=== PATIENT | male | born 1945 | race Hispanic/Latino ===

== ENCOUNTER 2017-04-19 23:13 | Inpatient (IN) | payer MEDICARE ==
--- NOTE | 2017-04-19 23:34 | C.PDOC ---
History Of Present Illness 71 year old male who BIBA ambulance after his neighbors saw him drinking in his car and call EMS. Patient admits to drinking; he states he is depressed because today is the anniversary of his 's . Patient reports having suicidal thoughts but has no plan; denies physical complaints at this time. Time Seen by Provider: 04/19/17 23:21 Chief Complaint (Nursing): Substance Abuse History Per: Patient History/Exam Limitations: no limitations Onset/Duration Of Symptoms: Hrs Current Symptoms Are (Timing): Still Present Suicide/Self Injury Attempted (Context): None Modifying Factor(s): Alcohol Associated Symptoms: Depression, Suicidal Thoughts. denies: Suicidal Plan Involuntary Hold By: None Recent travel outside of the [place]: No Past Medical History Reviewed: Historical Data, Nursing Documentation, Vital Signs Vital Signs: Last Vital Signs Temp 98.7 F 04/21/17 15:25 Pulse 90 04/21/17 15:25 Resp 20 04/21/17 15:25 BP 142/59 L 04/21/17 15:25 Pulse Ox 96 04/21/17 15:25 - Medical History PMH: No Chronic Diseases - [facility] Procedures CHOLECYSTECTOMY (04/23/03) DESTRUCT ABD WALL LESION (06/09/99) DESTRUCT-KNEE LESION NEC (02/11/98) EXCIS KNEE SEMILUN CARTL (02/11/98) INTRAOPER CHOLANGIOGRAM (04/23/03) LAPAROSCOP LYSIS-PERITONEAL ADHES (04/23/03) OPEN BIOPSY OF LIVER (04/23/03) OTH LYSIS-PERITONEAL ADHES (06/09/99) SIZE REDUCT PLASTIC OP (06/09/99) UMBIL HERNIA REPAIR-GRFT (06/09/99) Family History: States: Other Other Family History: nc Review Of Systems Except As Marked, All Systems Reviewed And Found Negative. Constitutional: Negative for: Fever, Chills Cardiovascular: Negative for: Chest Pain, Palpitations Respiratory: Negative for: Cough, Shortness of Breath, Wheezing Gastrointestinal: Negative for: Nausea, Vomiting, Abdominal Pain, Diarrhea Neurological: Negative for: Weakness, Numbness Psych: Positive for: Depression, Suicidal ideation Physical Exam - Physical Exam Appears: Non-toxic, No Acute Distress, Other (ETOH on breath) Skin: Normal Color, Warm, Dry Head: Atraumatic, Normacephalic Eye(s): bilateral: PERRL Nose: No Epistaxis Oral Mucosa: Moist Chest: No Tenderness Cardiovascular: Rhythm Regular, No Murmur Respiratory: No Accessory Muscle Use, No Rales, No Rhonchi, No Wheezing Gastrointestinal/Abdominal: Soft, No Tenderness Extremity: No Deformity Pulses: Left Radial: Normal, Right Radial: Normal Neurological/Psych: Oriented x3, Normal Motor, Normal Sensation, Other (no focal defiicts) ED Course And Treatment - Laboratory Results Result Diagrams: 04/20/17 11:22 04/20/17 11:22 Medical Decision Making Medical Decision Making: Blood work, EKG, and urinalysis ordered. EKG: Atrial fibrillation 73, LBBB Disposition - Disposition Disposition: HOSPITALIZED Disposition Time: 01:43 Condition: GUARDED - Clinical Impression Clinical Impression: Alcoholic ketoacidosis, Suicidal ideation - Scribe Statement The provider has reviewed the documentation as recorded by the Scribe Geovany Rockwell All medical record entries made by the Scribe were at my direction and personally dictated by me. I have reviewed the chart and agree that the record accurately reflects my personal performance of the history, physical exam, medical decision making, and the department course for this patient. I have also personally directed, reviewed, and agree with the discharge instructions and disposition.
[2017-04-19] MEDS ORDERED: Sodium Chloride 0.9% 1,000 ML IV SCH (23:45)
[2017-04-19 23:46] LABS: BASO # 0.1 K/uL (0.0-0.2); BASO % 0.8 % (0.0-2.0); EOS # 0.4 K/uL (0.0-0.7); EOS % 3.3 % (0.0-4.0); HEMOGLOBIN 12.6 g/dL (12.0-18.0); LYMPH # 2.8 K/uL (1.0-4.3); LYMPH % 24.8 % (20.0-40.0); MEAN CELL VOLUME 87.1 fL (80.0-94.0); MEAN CORPUSCULAR HEMOGLOBIN 28.3 pg (27.0-31.0); MEAN CORPUSCULAR HGB CONC 32.5 g/dL (33.0-37.0); MEAN PLATELET VOLUME 8.8 fL (7.2-11.7); MONO # 1.3 K/uL (0.0-0.8); MONO % 11.4 % (0.0-10.0); NEUT # 6.6 K/uL (1.8-7.0); NEUT % 59.7 % (50.0-75.0); RBC 4.44 Mil/uL (4.40-5.90); RED CELL DISTRIBUTION WIDTH 13.2 % (11.5-14.5); WHITE BLOOD COUNT 11.1 K/uL (4.8-10.8)
[2017-04-19] MEDS ORDERED: Sodium Chloride 0.9% 1,000 ML ONE (23:46)
[2017-04-19 23:55] LABS: ALBUMIN 3.7 g/dL (3.5-5.0)
[2017-04-19 23:58] LABS: AST/SGOT 30 U/L (17-59); GFR AFRICAN-AMERICAN > 60; GFR NON-AFRICAN AMERICAN > 60
[2017-04-19 23:59] LABS: ALB/GLOB RATIO 1.1 (1.0-2.1); ALT/SGPT 28 U/L (21-72); BLOOD UREA NITROGEN 6 mg/dL (9-20); CALCIUM 8.2 mg/dl (8.6-10.4)
[2017-04-20 00:06] LABS: ACETAMINOPHEN < 10.0 ug/mL (10.0-30.0); SALICYLATE < 1.0 mg/dL 1
[2017-04-20] MEDS ORDERED: Sodium Chloride 0.9% 1,000 ML IV ONE ×2 (00:58→01:15)
[2017-04-20 01:24] LABS: ABG ALLEN TEST POS; ARTERIAL BLOOD GAS O2 SAT 96.2 % (95-98); ARTERIAL BLOOD GAS PCO2 38 mm/Hg (35-45); ARTERIAL BLOOD GAS PH 7.25 (7.35-7.45); ARTERIAL BLOOD GAS PO2 73 mm/Hg (80-100); ARTERIAL BLOOD GAS TCO2 17.9 mmol/L (22-28)
[2017-04-20] MEDS ORDERED: Thiamine 100 mg/ml Inj IV ONE (01:29)
[2017-04-20] MEDS ORDERED: Dextrose 5%/0.9% NS 1,000 ML IV ONE ×2 (01:30→01:36)
[2017-04-20] MEDS ORDERED: Sodium Chloride 0.9% 1,000 ML IV SCH ×2 (02:00→02:30)
[2017-04-20 02:43] LABS: GFR AFRICAN-AMERICAN > 60; GFR NON-AFRICAN AMERICAN > 60
[2017-04-20 02:44] LABS: BLOOD UREA NITROGEN 5 mg/dL (9-20); CALCIUM 6.8 mg/dl (8.6-10.4)
[2017-04-20 02:51] LABS: VENOUS BLOOD GAS BASE EXCESS -12.6 mmol/L (0.0-2.0); VENOUS BLOOD GAS PCO2 39 mmHg (40-60); VENOUS BLOOD GAS PO2 45 mm/Hg (30-55); VENOUS BLOOD PH 7.19 (7.32-7.43)
[2017-04-20 03:13] LABS: VENOUS BLOOD GAS BASE EXCESS -9.9 mmol/L (0.0-2.0); VENOUS BLOOD GAS PCO2 46 mmHg (40-60); VENOUS BLOOD GAS PO2 41 mm/Hg (30-55)
[2017-04-20 07:24] LABS: SQUAMOUS EPITHIAL < 1 /hpf (0-5); URINE BACTERIA RARE (<OCC); URINE BILIRUBIN NEGATIVE (NEGATIVE); URINE BLOOD 1+ (NEGATIVE); URINE CLARITY Clear (Clear); URINE COLOR Straw (YELLOW); URINE GLUCOSE (UA) 3+ mg/dL (Normal); URINE LEUKOCYTE ESTERASE TRACE Leu/uL (Negative); URINE NITRATE NEGATIVE (NEGATIVE); URINE PROTEIN NEGATIVE (NEGATIVE); URINE UROBILINOGEN NORMAL mg/dL (0.2-1.0)
[2017-04-20 07:54] LABS: BENZODIAZEPINES, UR NEGATIVE (NEGATIVE)
[2017-04-20 07:55] LABS: BARBITURATES, UR NEGATIVE (NEGATIVE)
[2017-04-20 07:57] LABS: OPIATES, UR NEGATIVE (NEGATIVE)
[2017-04-20 07:58] LABS: PHENCYCLIDINE, UR NEGATIVE (NEGATIVE)
[2017-04-20] MEDS: (Novolin R) Insulin Human Regular 100 units/ml vial SC SCH ×4 (08:09→22:02)
--- NOTE | 2017-04-20 08:14 | RAD ---
HISTORY: psych COMPARISON: No prior. FINDINGS: LUNGS: Moderate venous congestion. Patchy consolidative changes at the left lung base with small left pleural effusion. PLEURA: No significant pleural effusion identified, no pneumothorax apparent. CARDIOVASCULAR: Cardiomegaly. Calcification at the aortic knob. OSSEOUS STRUCTURES: No significant abnormalities. VISUALIZED UPPER ABDOMEN: Normal. OTHER FINDINGS: None. IMPRESSION: Moderate venous congestion. Patchy consolidative changes at the left lung base with small left pleural effusion. Cardiomegaly. Calcification at the aortic knob.
[2017-04-20] MEDS: Albuterol-Ipratrop 3 mg / 0.5 (3 ml) UD INH SCH ×3 (08:39→19:17)
[2017-04-20] MEDS: Tiotropium 18 mcg Cap For Inhalation INH SCH (08:40)
[2017-04-20] MEDS: Fluticasone-Salmeterol 250-50mcg Diskus INH SCH ×2 (08:40→19:17)
[2017-04-20] MEDS ORDERED: Folic Acid 1 MG, Thiamine 100 MG, Multivitamin (MVI) 10 ML in Dextrose 5% In Water 1,00... IV SCH ×2 (09:30)
[2017-04-20] MEDS: Enoxaparin 40 mg Syringe SC SCH (11:01)
[2017-04-20 11:28] LABS: BASO # 0.1 K/uL (0.0-0.2); BASO % 1.1 % (0.0-2.0); EOS # 0.3 K/uL (0.0-0.7); EOS % 3.7 % (0.0-4.0); HEMOGLOBIN 12.3 g/dL (12.0-18.0); LYMPH # 2.1 K/uL (1.0-4.3); LYMPH % 26.9 % (20.0-40.0); MEAN CELL VOLUME 86.1 fL (80.0-94.0); MEAN CORPUSCULAR HEMOGLOBIN 28.4 pg (27.0-31.0); MEAN PLATELET VOLUME 9.7 fL (7.2-11.7); MONO # 0.8 K/uL (0.0-0.8); MONO % 10.3 % (0.0-10.0); NEUT # 4.5 K/uL (1.8-7.0); RBC 4.34 Mil/uL (4.40-5.90); WHITE BLOOD COUNT 7.8 K/uL (4.8-10.8)
[2017-04-20 11:40] LABS: ALBUMIN 3.6 g/dL (3.5-5.0)
[2017-04-20 11:43] LABS: GFR AFRICAN-AMERICAN > 60; GFR NON-AFRICAN AMERICAN > 60
[2017-04-20 11:44] LABS: ALB/GLOB RATIO 1.1 (1.0-2.1); ALT/SGPT 33 U/L (21-72); AST/SGOT 29 U/L (17-59); BLOOD UREA NITROGEN 4 mg/dL (9-20); CALCIUM 8.5 mg/dl (8.6-10.4)
[2017-04-20 11:51] LABS: CK-MB 4.28 ng/mL (0.0-3.38)
--- NOTE | 2017-04-20 12:23 | CARD ---
APPROVED REPORT EKG Measurement Heart [id number] <Conclusion> Atrial fibrillation Left axis deviation Nonspecific intraventricular block Abnormal QRS-T angle, consider primary T wave abnormality Abnormal ECG
--- NOTE | 2017-04-20 16:57 | PCM.PSYCH ---
Initial Psychiatric Evaluation - Initial Psychiatric Evaluation Type of Admission: Voluntary Legal Status: Capacity Chief Complaint (in patient's own words): I was drinking alcohol and feeling depressed History of Present Illness and Precipitating Events: Patient is a 71 year-old male, who lives alone, came to the hospital via ambulance after his neighbors saw him drinking alcohol in his car. We were consulted because the patient states he feels depressed and has suicidal ideations. Patient states that he drank a pint of liquor and was feeling depressed yesterday because it was 4th anniversary of his 's . 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 Patient admits to suicidal ideations yesterday while drinking but denies any suicidal ideation or plan today. He remained superficially cooperative but guarded about the details. He reports depressed mood but denies any feelings of haplessness and helplessness and worthlessness. Patient denies any previous suicide attempts. Patient denies any hallucinations , and any other symptoms. Patient denies any other substance abuse. Patient denies any withdrawal symptoms. Staff reports that pt remained calm and cooperative since yesterday and they didn't witness any depressed or crying behavior. Past medical history DM, asthma Current Medications: Active Medications Generic Name Dose Route Start Last Admin Trade Name Freq PRN Reason Stop Dose Admin Albuterol/Ipratropium 3 ml 04/20/17 08:00 04/20/17 13:08 Duoneb 3 Mg/0.5 Mg (3 Ml) Ud INH 3 ml RQ6 KOTA Administration Enoxaparin Sodium 40 mg 04/20/17 10:00 04/20/17 11:01 Lovenox SC 40 mg DAILY KOTA Administration Famotidine 20 mg 04/20/17 10:00 04/20/17 11:01 Pepcid IVP 20 mg DAILY KOTA Administration Folic Acid 1 mg/ Thiamine HCl 1,011.2 mls @ 75 mls/hr 04/20/17 09:30 11:14 100 mg/ Multivitamins/Vitamin IV 04/20/17 22:58 75 mls/hr C 10 ml/ Dextrose .[id number] KOTA Administration Insulin Human Regular 0 unit 04/20/17 07:30 04/20/17 12:31 Novolin R SC 2 unit ACHS KOTA Administration Protocol Fluticasone/Salmeterol 1 puff 04/20/17 08:00 04/20/17 08:40 Advair Diskus 250/50 INH Not Given RQ12 KOTA Sertraline HCl 25 mg 04/20/17 10:00 04/20/17 11:01 Zoloft PO 25 mg DAILY KOTA Administration Tiotropium [place] 18 mcg 04/20/17 08:00 04/20/17 08:40 Spiriva INH Not Given RQ24 KOTA Past Psychiatric History - Past Psychiatric History Previous Treatment History: None Pertinent Medical Hx (Current Medical&Sleep Prob, Allergies): Allergies Allergy/AdvReac Type Severity Reaction Status Date / Time No Known Allergies Allergy Unverified 04/19/17 23:20 Digoxin [Lanoxin] 0.25 mg PO DAILY 04/19/17 Diltiazem HCl [Diltiazem 24Hr ER] 180 mg PO DAILY 04/19/17 Glimepiride 2 mg PO DAILY 04/19/17 MetFORMIN [glucOPHAGE] 1,000 mg PO BID 04/19/17 Simvastatin 40 mg PO DAILY 04/19/17 Tamsulosin [Flomax] 0.4 mg PO DAILY 04/19/17 Review of Systems - Review of Systems All systems: reviewed and no additional remarkable complaints except - Psychiatric Psychiatric: Depression, Hopelessness, Irritability Mental Status Examination - Personal Presentation Personal Presentation: Looks stated age - Affect Affect: Constricted, Depressed - Motor Activity Motor Activity: Calm - Reliability in Providing Information Reliability in Providing Information: Fair - Speech Speech: Relevant - Mood Mood: Depressed - Formal Thought Process Formal Thought Process: No Impairment - Cognitive Functions Orientation: Person, Place, Situation, Time Sensorium: Alert Attention/Concentration: Attentive Abstract Thinking: [place] Estimate of Intelligence: Below average Judgement: Imparied, as evidence by: Poor judgement, Imparied, as evidence by: Lack of insight into illness - Risk Risk: Diminished functioning - Strength & Assets Inventory Strength & Assets Inventory: Cooperative - Limitations Limitations: Living alone DSM 5 DX - DSM 5 DSM 5 Diagnosis: Major depressive disorder recurrent severe without psychotic features Alcohol use moderate - Recommended/Plan of Treatment Treatment Recommendations and Plan of Treatment: Major depressive disorder recurrent severe without psychotic features CBT Psychoeducation Supportive therapy, individual therapy Start Zoloft 25 mg PO daily Start Trazodone 50 mg PO Q HS Start Neurontin 100 mg PO TID Alcohol use disorder moderate CBT Psychoeducation Supportive therapy, individual therapy Use [place] for abstinence - Smoking Cessation Smoking Cessation Initiated: No
--- NOTE | 2017-04-20 20:39 | CP.PCM.HP ---
History of Present Illness - History of Present Illness History of Present Illness: Chief complaint: Patient was brought to the neighbor, because he was drinking alcohol and found drunk. History present illness: 71-year-old male with history of diabetes, hypertension, bronchial asthma, hypercholesteremia, atrial fibrillation, unable to do the anticoagulation, patient was refusing to have the anticoagulation because of the bleeding. Poorly controlled diabetes recently. Osteoporosis and osteoarthritis. Patient was recently having some episodes of depression. He was taking some medications. Yesterday patient started drinking alcohol, he was drinking heavily, and seen by neighbor, and brought into the emergency room. In the emergency room he was drunk he was not responding properly at the time, and evaluation showing evidence of high alcohol in the blood, and also lactic acidosis. Patient claims that he started having increasing depression, and he thought of having suicidal ideation, and he started drinking heavily. He used to drink alcohol many years ago, he quit alcohol more than 20 years now. Currently he is awake and responding. He is feeling somewhat down, depressed. He is currently on one-to-one observation Past medical history as noted above Surgery: None Personal history: Dizziness any smoking. History of alcoholism the past. 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 History of skin cancer multiple times Allergy: No known drug allergy Family history noncontributory Review of system: Currently having no headache, not feeling well, depressed, no chest pain, cough noted, wheezing present, abdominal pain noted. No leg swelling Vital signs reviewed No neck vein distention noted, depressed a sensation noted Chest good air entry bilaterally, no wheezing or rales noted CVS regular heart sound, no murmur noted Abdomen soft, nontender. 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 Labs reviewed Elevated lactate noted, Assessment and recommendation: 71-year-old male with multiple medical history including diabetes hypertension bronchial asthma hypergastrinemia defibrillation admitted to the hospital with the severe alcoholism. High lactic acidosis. Secondary to most likely alcohol induced. Patient is on metformin. Severe depression, associate with the suicidal ideation. Overall prognosis is guarded. One-to-one observation psyche evaluation. We'll start the patient on his medications. Close follow-up Present on Admission - Present on Admission Any Indicators Present on Admission: No History of DVT/PE: No History of Uncontrolled Diabetes: No Urinary Catheter: No Decubitus Ulcer Present: No Past Patient History - Infectious Disease Hx of Infectious Diseases: None - Past Medical History & Family History Past Medical History?: Yes - Past Social History Smoking Status: Former Smoker - CARDIAC Hx Cardiac Disorders: Yes (A-fib,) Hx Hypercholesterolemia: Yes Hx Hypertension: Yes - PULMONARY Hx Chronic Obstructive Pulmonary Disease (COPD): Yes (Emphysema) - NEUROLOGICAL Hx Neurological Disorder: No - HEENT Hx HEENT Problems: No - RENAL Hx Chronic Kidney Disease: No - ENDOCRINE/METABOLIC Hx Diabetes Mellitus Type 2: Yes - HEMATOLOGICAL/ONCOLOGICAL Hx Blood Disorders: No - INTEGUMENTARY Hx Dermatological Problems: No - MUSCULOSKELETAL/RHEUMATOLOGICAL Hx Musculoskeletal Disorders: No Hx Falls: No - GASTROINTESTINAL Hx Gastrointestinal Disorders: No - GENITOURINARY/GYNECOLOGICAL Hx Genitourinary Disorders: No - PSYCHIATRIC Hx Psychophysiologic Disorder: No Hx Substance Use: No - SURGICAL HISTORY Hx Surgeries: Yes Hx Cholecystectomy: Yes - ANESTHESIA Hx Anesthesia: Yes Hx Anesthesia Reactions: No Hx Malignant Hyperthermia: No Meds Allergies/Adverse Reactions: Allergies Allergy/AdvReac Type Severity Reaction Status Date / Time No Known Allergies Allergy Unverified 04/19/17 23:20 Results - Vital Signs Recent Vital Signs: Last Vital Signs Temp 97.9 F 04/20/17 15:13 Pulse 87 04/20/17 16:03 Resp 20 04/20/17 15:13 BP 150/55 L 04/20/17 15:13 Pulse Ox 95 04/20/17 16:03 - Labs Result Diagrams: 04/20/17 11:22 04/20/17 11:22 Labs: Laboratory Results - last 24 hr 04/20/17 04/20/17 04/20/17 02:15 02:37 03:08 WBC RBC Hgb Hct MCV MCH MCHC RDW Plt Count MPV Neut % (Auto) Lymph % (Auto) [place] % (Auto) Eos % (Auto) Baso % (Auto) Neut # Lymph # [place] # Eos # Baso # pO2 45 41 VBG pH 7.19 L* 7.20 L VBG pCO2 39 L 46 VBG HCO3 14.3 16.3 VBG Total CO2 16.1 L 19.4 L VBG O2 Sat (Calc) 80.8 H 74.0 H VBG Base Excess -12.6 L -9.9 L VBG Potassium 3.1 L 3.5 L Glucose 645 H* D 299 H Lactate 6.3 H* 7.0 H* Crit Value Called To Dr kristyn simons Crit Value Called By Beba amaya rt Beba amaya rt Crit Value Read Back Y Y Blood Gas Notified Time 252 314 Sodium 131 L 136.0 135.0 Potassium 3.4 L Chloride 98 102.0 100.0 Carbon Dioxide 15 L Anion Gap 21 H BUN 5 L Creatinine 0.7 L Est GFR ( Amer) > 60 Est GFR (Non-Af Amer) > 60 POC Glucose (mg/dL) Random Glucose 339 H Lactic Acid Calcium 6.8 L Total Bilirubin AST ALT Alkaline Phosphatase Total Creatine Kinase CK-MB (Mass) Troponin I, Quant Total Protein Albumin Globulin Albumin/Globulin Ratio Venous Blood Potassium 3.1 L 3.5 L Urine Color Urine Clarity Urine pH Ur Specific [place] Urine Protein Urine Glucose (UA) Urine Ketones Urine Blood Urine Nitrate Urine Bilirubin Urine Urobilinogen Ur Leukocyte Esterase Urine WBC (Auto) Urine RBC (Auto) Ur Squamous Epith Cells Urine Bacteria Urine Opiates Screen Urine Methadone Screen Ur Barbiturates Screen Ur Phencyclidine Scrn Ur Amphetamines Screen U Benzodiazepines Scrn U Oth Cocaine Metabols U Cannabinoids Screen 04/20/17 04/20/17 04/20/17 06:21 07:10 07:10 WBC RBC Hgb Hct MCV MCH MCHC RDW Plt Count MPV Neut % (Auto) Lymph % (Auto) [place] % (Auto) Eos % (Auto) Baso % (Auto) Neut # Lymph # [place] # Eos # Baso # pO2 VBG pH VBG pCO2 VBG HCO3 VBG Total CO2 VBG O2 Sat (Calc) VBG Base Excess VBG Potassium Glucose Lactate Crit Value Called To Crit Value Called By Crit Value Read Back Blood Gas Notified Time Sodium Potassium Chloride Carbon Dioxide Anion Gap BUN Creatinine Est GFR ( Amer) Est GFR (Non-Af Amer) POC Glucose (mg/dL) 165 H Random Glucose Lactic Acid Calcium Total Bilirubin AST ALT Alkaline Phosphatase Total Creatine Kinase CK-MB (Mass) Troponin I, Quant Total Protein Albumin Globulin Albumin/Globulin Ratio Venous Blood Potassium Urine Color Straw Urine Clarity Clear Urine pH 5.0 Ur Specific [place] 1.000 L Urine Protein Negative Urine Glucose (UA) 3+ H Urine Ketones Trace Urine Blood 1+ H Urine Nitrate Negative Urine Bilirubin Negative Urine Urobilinogen Normal Ur Leukocyte Esterase Trace Urine WBC (Auto) 2 Urine RBC (Auto) < 1 Ur Squamous Epith Cells < 1 Urine Bacteria Rare Urine Opiates Screen Negative Urine Methadone Screen Negative Ur Barbiturates Screen Negative Ur Phencyclidine Scrn Negative Ur Amphetamines Screen Negative U Benzodiazepines Scrn Negative U Oth Cocaine Metabols Negative U Cannabinoids Screen Negative 04/20/17 04/20/17 04/20/17 11:18 11:22 11:22 WBC 7.8 RBC 4.34 L Hgb 12.3 Hct 37.3 MCV 86.1 MCH 28.4 MCHC 33.0 RDW 13.0 Plt Count 188 MPV 9.7 Neut % (Auto) 58.0 Lymph % (Auto) 26.9 [place] % (Auto) 10.3 H Eos % (Auto) 3.7 Baso % (Auto) 1.1 Neut # 4.5 Lymph # 2.1 [place] # 0.8 Eos # 0.3 Baso # 0.1 pO2 VBG pH VBG pCO2 VBG HCO3 VBG Total CO2 VBG O2 Sat (Calc) VBG Base Excess VBG Potassium Glucose Lactate Crit Value Called To Crit Value Called By Crit Value Read Back Blood Gas Notified Time Sodium 139 Potassium 4.0 Chloride 104 Carbon Dioxide 23 Anion Gap 16 BUN 4 L Creatinine 0.6 L Est GFR ( Amer) > 60 Est GFR (Non-Af Amer) > 60 POC Glucose (mg/dL) 201 H Random Glucose 141 H Lactic Acid Calcium 8.5 L Total Bilirubin 0.5 AST 29 ALT 33 Alkaline Phosphatase 62 Total Creatine Kinase 90 CK-MB (Mass) 4.28 H Troponin I, Quant < 0.0120 Total Protein 6.7 Albumin 3.6 Globulin 3.1 Albumin/Globulin Ratio 1.1 Venous Blood Potassium Urine Color Urine Clarity Urine pH Ur Specific [place] Urine Protein Urine Glucose (UA) Urine Ketones Urine Blood Urine Nitrate Urine Bilirubin Urine Urobilinogen Ur Leukocyte Esterase Urine WBC (Auto) Urine RBC (Auto) Ur Squamous Epith Cells Urine Bacteria Urine Opiates Screen Urine Methadone Screen Ur Barbiturates Screen Ur Phencyclidine Scrn Ur Amphetamines Screen U Benzodiazepines Scrn U Oth Cocaine Metabols U Cannabinoids Screen 04/20/17 04/20/17 11:22 16:01 WBC RBC Hgb Hct MCV MCH MCHC RDW Plt Count MPV Neut % (Auto) Lymph % (Auto) [place] % (Auto) Eos % (Auto) Baso % (Auto) Neut # Lymph # [place] # Eos # Baso # pO2 VBG pH VBG pCO2 VBG HCO3 VBG Total CO2 VBG O2 Sat (Calc) VBG Base Excess VBG Potassium Glucose Lactate Crit Value Called To Crit Value Called By Crit Value Read Back Blood Gas Notified Time Sodium Potassium Chloride Carbon Dioxide Anion Gap BUN Creatinine Est GFR ( Amer) Est GFR (Non-Af Amer) POC Glucose (mg/dL) 179 H Random Glucose Lactic Acid 2.5 H Calcium Total Bilirubin AST ALT Alkaline Phosphatase Total Creatine Kinase CK-MB (Mass) Troponin I, Quant Total Protein Albumin Globulin Albumin/Globulin Ratio Venous Blood Potassium Urine Color Urine Clarity Urine pH Ur Specific [place] Urine Protein Urine Glucose (UA) Urine Ketones Urine Blood Urine Nitrate Urine Bilirubin Urine Urobilinogen Ur Leukocyte Esterase Urine WBC (Auto) Urine RBC (Auto) Ur Squamous Epith Cells Urine Bacteria Urine Opiates Screen Urine Methadone Screen Ur Barbiturates Screen Ur Phencyclidine Scrn Ur Amphetamines Screen U Benzodiazepines Scrn U Oth Cocaine Metabols U Cannabinoids Screen
[2017-04-21] MEDS: Albuterol-Ipratrop 3 mg / 0.5 (3 ml) UD INH SCH ×4 (02:12→19:20)
[2017-04-21] MEDS: Tiotropium 18 mcg Cap For Inhalation INH SCH (07:35)
[2017-04-21] MEDS: Fluticasone-Salmeterol 250-50mcg Diskus INH SCH ×2 (07:35→19:19)
[2017-04-21] MEDS: (Novolin R) Insulin Human Regular 100 units/ml vial SC SCH ×4 (07:59→21:59)
[2017-04-21] MEDS ORDERED: DiphenhydrAMINE 12.5 mg/5 ml LIQ UD (5 ml) PO STA (08:09)
[2017-04-21] MEDS ORDERED: MethylPREDNISolone 40 mg Vial IVP STA (08:09)
--- NOTE | 2017-04-21 08:11 | CP.PCM.PN ---
Subjective - Date & Time of Evaluation Date of Evaluation: 04/21/17 Time of Evaluation: 08:11 Objective - Vital Signs/Intake and Output Vital Signs (last 24 hours): Temp Pulse Resp BP Pulse Ox 97.9 F 74 20 150/85 96 04/21/17 04:15 04/21/17 04:15 04/21/17 04:15 04/21/17 04:15 04/21/17 04:15 Intake and Output: 04/21/17 04/21/17 06:59 18:59 Intake Total 660 Output Total 1750 Balance -1090 - Medications Medications: Current Medications Albuterol/Ipratropium (Duoneb 3 Mg/0.5 Mg (3 Ml) Ud) 3 ml INH RQ6 KOTA Last Admin: 04/21/17 07:35 Dose: 3 ml Diphenhydramine HCl (Benadryl) 25 mg PO STAT STA Stop: 04/21/17 08:10 Enoxaparin Sodium (Lovenox) 40 mg SC DAILY KOTA Last Admin: 04/20/17 11:01 Dose: 40 mg Famotidine (Pepcid) 20 mg IVP DAILY KOTA Last Admin: 04/20/17 11:01 Dose: 20 mg Famotidine (Pepcid) 20 mg IVP STAT STA Stop: 04/21/17 08:10 Gabapentin (Neurontin) 100 mg PO TID KOTA Last Admin: 04/20/17 17:37 Dose: 100 mg Insulin Human Regular (Novolin R) 0 unit SC ACHS KOTA PRN Reason: Protocol Last Admin: 04/21/17 07:59 Dose: 1 unit Lorazepam (Ativan) 0.5 mg PO Q6 PRN PRN Reason: Symptoms of alcohol withdrawl Methylprednisolone (Solu-Medrol) 60 mg IVP STAT STA Stop: 04/21/17 08:10 Fluticasone/Salmeterol (Advair Diskus 250/50) 1 puff INH RQ12 KOTA Last Admin: 04/21/17 07:35 Dose: 1 puff Sertraline HCl (Zoloft) 50 mg PO DAILY KOTA Tiotropium [place] (Spiriva) 18 mcg INH RQ24 KOTA Last Admin: 04/21/17 07:35 Dose: 18 mcg Trazodone HCl (Desyrel) 50 mg PO HS KOTA Last Admin: 04/20/17 21:48 Dose: 50 mg
[2017-04-21] MEDS: Enoxaparin 40 mg Syringe SC SCH (10:34)
--- NOTE | 2017-04-21 11:18 | CARD ---
APPROVED REPORT EXAM: Two-dimensional and M-mode echocardiogram with Doppler and color Doppler. Other Information Quality : Technically LimitedRhythm : NSR INDICATION Atrial Fibrillation M-Mode DIMENSIONS RVDd3.51 (2.1-3.2cm)Left Atrium (MM)5.39 (2.5-4.0cm) IVSd1.00 (0.7-1.1cm)Aortic Root3.29 (2.2-3.7cm) LVDd6.29 (4.0-5.6cm)Aortic Cusp Exc.1.57 (1.5-2.0cm) PWd0.95 (0.7-1.1cm)FS (%) 28 % LVDs4.56 (2.0-3.8cm)LVEF (%)53 (>50%) Mitral Valve MV E Nkdmyfpi507.3cm/sMV A Bptgaoho35.6cm/sE/A ratio1.5 TDI E/Lateral E'0.0E/Medial E'0.0 Tricuspid Valve TR Peak [id number]/sTR Peak [id number] LEFT VENTRICLE The Left Ventricle is mildly dilated. There is normal left ventricular wall thickness. The left ventricular systolic function is normal. The left ventricular ejection fraction is within the normal range. There is normal LV segmental wall motion. Undetermined RIGHT VENTRICLE The right ventricle is mildly dilated. The right ventricular systolic function is normal. ATRIA The left atrium is mildly dilated. The right atrium is mildly dilated. AORTIC VALVE The aortic valve is slightly calcified but opens well. No aortic regurgitation is present. MITRAL VALVE Mitral annular calcification is mild. There is no mitral valve regurgitation noted. TRICUSPID VALVE The tricuspid valve is normal in structure. There is mild tricuspid regurgitation. Right ventricular systolic pressure is estimated at 36 mmHg. There is mild pulmonary hypertension. PULMONIC VALVE The pulmonic valve is not well visualized. GREAT VESSELS The aortic root displays mild sclerocalcific changes. The IVC was not visualized. PERICARDIAL EFFUSION There is no pericardial effusion. <Conclusion> TECHNICALLY DIFFICULT STUDY DUE TO POOR ACOUSTIC WINDOWS The Left Ventricle is mildly dilated with preserved systolic function. There is normal LV segmental wall motion. The right ventricle is mildly dilated with normal systolic function. Mild to moderate biatrial enlargement. There is mild tricuspid regurgitation. Right ventricular systolic pressure is estimated at - 36 mmHg suggestive of mild pulmonary hypertension. There is no gross pericardial effusion.
--- NOTE | 2017-04-21 13:49 | PCM.PYCHPN ---
Psychiatric Progress Note - Psychiatric Progress Note Patient seen today, length of contact: 16 min Patient Chief Complaint: I was drinking alcohol and feeling depressed Problems Identified/Issues Discussed: Patient seen and evaluated, chart reviewed and discussed with the nurse. As per the staff, patient still appears isolated, depressed and withdrawn. Patient still reports depressed mood and reports at times feelings of hopelessness or helplessness. He denies any withdrawal symptoms. However he remained guarded about any suicidal ideation. He denies any auditory or visual hallucinations or any psychotic symptoms. He needs some more time for stabilization. He is compliant with his medications and denies any side effects. Supportive therapy and psychoeducation were given. Medication Change: Yes (increase zoloft) Medical Record Reviewed: Yes Mental Status Examination - Cognitive Function Orientation: Person, Place, Situation, Time Memory: Intact Attention: Poor Concentration: Poor Association: WNL Fund of Knowledge: Poor - Mood Mood: Depressed, Anxious - Affect Affect: Constricted, Depressed - Speech Speech: Soft - Formal Thought Process Formal Thought Process: No Impairment - Suicidal Ideation Suicidal Ideation: No Plan: guarded - Homicidal Ideation Homicidal Ideation: No Goal/Treatment Plan - Goal/Treatment Plan Need for Continued Stay: Discharge may exacerbated symptoms, Severe functional impairment Progress Toward Problem(s) and Goals/Treatment Plan: Major depressive disorder recurrent severe without psychotic features CBT Psychoeducation Supportive therapy, individual therapy Increase Zoloft to 50 mg PO daily Trazodone 50 mg PO Q HS Neurontin 100 mg PO TID Transfer pt to 5E when gets cleared medically Alcohol use disorder moderate CBT Psychoeducation Supportive therapy, individual therapy Use [place] for abstinence
[2017-04-21] MEDS ORDERED: (Lantus) Insulin Glargine, Recombinant SC SCH (22:00)
[2017-04-22] MEDS: Albuterol-Ipratrop 3 mg / 0.5 (3 ml) UD INH SCH ×4 (01:33→21:44)
[2017-04-22] MEDS: Tiotropium 18 mcg Cap For Inhalation INH SCH (08:08)
[2017-04-22] MEDS: Fluticasone-Salmeterol 250-50mcg Diskus INH SCH ×2 (08:08→21:43)
[2017-04-22] MEDS: (Novolin R) Insulin Human Regular 100 units/ml vial SC SCH ×5 (08:53→23:37)
[2017-04-22] MEDS: Enoxaparin 40 mg Syringe SC SCH (09:57)
[2017-04-22] MEDS ORDERED: Pneumococcal 23-Valent Vaccine IM ONE (10:00)
--- NOTE | 2017-04-22 11:47 | CP.PCM.PN ---
Subjective - Date & Time of Evaluation Date of Evaluation: 04/22/17 Time of Evaluation: 11:47 - Subjective Subjective: PT MEDICALLY CLEARED FOR TRANSFER TO PSYCH FLOOR PER DR. ADDISON. [employer] DISCUSSED PLAN WITH PT AND HE IS IN AGREEMENT WITH TRANSFER. FREDDY NEW. ORDERED TO TRANSFER TO [facility] SOON BED AVAILABLE. DR. RODRIGUEZ TO FOLLOW HIM FOR MEDICAL REASONS WHILE ON [facility]. LANTUS ALSO ADJUSTED PER MD. NO FURTHER ORDERS. Objective - Vital Signs/Intake and Output Vital Signs (last 24 hours): Temp Pulse Resp BP Pulse Ox 97.7 F 88 20 163/90 H 98 04/22/17 08:34 04/22/17 08:34 04/22/17 08:34 04/22/17 08:34 04/22/17 08:34 Intake and Output: 04/22/17 04/22/17 06:59 18:59 Intake Total 420 Balance 420 - Medications Medications: Current Medications Albuterol/Ipratropium (Duoneb 3 Mg/0.5 Mg (3 Ml) Ud) 3 ml INH RQ6 [facility] Last Admin: 04/22/17 07:37 Dose: 3 ml Enoxaparin Sodium (Lovenox) 40 mg SC DAILY [facility] Last Admin: 04/22/17 09:57 Dose: 40 mg Famotidine (Pepcid) 20 mg IVP DAILY [facility] Last Admin: 04/22/17 09:57 Dose: 20 mg Gabapentin (Neurontin) 100 mg PO TID [facility] Last Admin: 04/22/17 09:57 Dose: 100 mg Insulin Glargine (Lantus) 20 unit SC HS [facility] Insulin Human Regular (Novolin R) 0 unit SC ACHS [facility] PRN Reason: Protocol Last Admin: 04/22/17 08:53 Dose: 3 unit Lorazepam (Ativan) 0.5 mg PO Q6 PRN PRN Reason: Symptoms of alcohol withdrawl Fluticasone/Salmeterol (Advair Diskus 250/50) 1 puff INH RQ12 [facility] Last Admin: 04/22/17 08:08 Dose: 1 puff Sertraline HCl (Zoloft) 50 mg PO DAILY [facility] Last Admin: 04/22/17 09:57 Dose: 50 mg Tiotropium [place] (Spiriva) 18 mcg INH RQ24 [facility] Last Admin: 04/22/17 08:08 Dose: 18 mcg Trazodone HCl (Desyrel) 50 mg PO [facility] Last Admin: 04/21/17 22:00 Dose: 50 mg
[2017-04-22 16:10] VITALS: O2SAT 96
--- NOTE | 2017-04-22 19:51 | PCM.BM ---
<Danisha Aragon - Last Filed: 04/22/17 19:50> Treatment Plan Problems - Problems identified on initial assessmt Depression Date Initiated: 04/22/17 Time Initiated: 19:50 Assessment reference: NA Status: Active - Milieu Protocol Milieu Narrative: Major depressive disorder recurrent severe without psychotic features CBT Psychoeducation Supportive therapy, individual therapy Increase Zoloft to 50 mg PO daily Trazodone 50 mg PO Q HS Neurontin 100 mg PO TID Transfer pt to 5E when gets cleared medically Alcohol use disorder moderate CBT Psychoeducation Supportive therapy, individual therapy Use [place] for abstinence Discharge/Continuing Care - Additional Comments Major depressive disorder recurrent severe without psychotic features CBT Psychoeducation Supportive therapy, individual therapy Increase Zoloft to 50 mg PO daily Trazodone 50 mg PO Q HS Neurontin 100 mg PO TID Transfer pt to 5E when gets cleared medically Alcohol use disorder moderate CBT Psychoeducation Supportive therapy, individual therapy Use [place] for abstinence - Treatment Team Participation Patient/Family/SO Statement: Major depressive disorder recurrent severe without psychotic features CBT Psychoeducation Supportive therapy, individual therapy Increase Zoloft to 50 mg PO daily Trazodone 50 mg PO Q HS Neurontin 100 mg PO TID Transfer pt to 5E when gets cleared medically Alcohol use disorder moderate CBT Psychoeducation Supportive therapy, individual therapy Use [place] for abstinence <Arelis Joy - Last Filed: 04/28/17 01:17> - Diagnosis (1) Suicidal ideation Status: Acute Interventions: 04/25/17 11:41 Attend groups, take meds (2) Alcoholic ketoacidosis Status: Acute Interventions: 04/25/17 11:41 Attend groups, take meds
[2017-04-22] MEDS: (Lantus) Insulin Glargine, Recombinant SC SCH (21:44)
[2017-04-23] MEDS: Albuterol-Ipratrop 3 mg / 0.5 (3 ml) UD INH SCH ×4 (02:19→21:22)
[2017-04-23] MEDS: (Novolin R) Insulin Human Regular 100 units/ml vial SC SCH ×5 (07:30→21:21)
[2017-04-23] MEDS: Fluticasone-Salmeterol 250-50mcg Diskus INH SCH ×2 (10:12→21:22)
[2017-04-23] MEDS: Enoxaparin 40 mg Syringe SC SCH (10:13)
[2017-04-23] MEDS: Tiotropium 18 mcg Cap For Inhalation INH SCH (10:43)
--- NOTE | 2017-04-23 10:46 | PCM.PYCHPN ---
Psychiatric Progress Note - Psychiatric Progress Note Patient seen today, length of contact: 16 min Patient Chief Complaint: I was drinking alcohol and feeling depressed Problems Identified/Issues Discussed: Patient seen and evaluated, chart reviewed and discussed with the nurse. Patient still reports depressed mood and reports at times feelings of hopelessness or helplessness. As per the staff, patient still appears isolated, depressed and withdrawn. He denies any withdrawal symptoms. However he remained guarded about any suicidal ideation. He denies any auditory or visual hallucinations or any psychotic symptoms. He needs some more time for stabilization. He is compliant with his medications and denies any side effects. Supportive therapy and psychoeducation were given. Medication Change: Yes (increase zoloft) Medical Record Reviewed: Yes Mental Status Examination - Cognitive Function Orientation: Person, Place, Situation, Time Memory: Intact Attention: WNL Concentration: Poor Association: WNL Fund of Knowledge: Poor - Mood Mood: Depressed, Anxious - Affect Affect: Constricted, Depressed - Speech Speech: Soft - Formal Thought Process Formal Thought Process: No Impairment - Suicidal Ideation Suicidal Ideation: No - Homicidal Ideation Homicidal Ideation: No Goal/Treatment Plan - Goal/Treatment Plan Need for Continued Stay: Discharge may exacerbated symptoms, Severe functional impairment Progress Toward Problem(s) and Goals/Treatment Plan: Major depressive disorder recurrent severe without psychotic features CBT Psychoeducation Supportive therapy, individual therapy Increase Zoloft to 50 mg PO daily Trazodone 50 mg PO Q HS Neurontin 100 mg PO TID Transfer pt to 5E when gets cleared medically Alcohol use disorder moderate CBT Psychoeducation Supportive therapy, individual therapy Use [place] for abstinence - Smoking Cessation Smoking Cessation Initiated: No
--- NOTE | 2017-04-23 10:46 | PCM.PYCHPN ---
Psychiatric Progress Note - Psychiatric Progress Note Patient seen today, length of contact: 16 min Patient Chief Complaint: I was drinking alcohol and feeling depressed Problems Identified/Issues Discussed: Patient seen and evaluated, chart reviewed and discussed with the nurse. The patient reports improvement in his mood and reports somewhat improvement in his symptoms, but he remained isolated and continued to pace back and forth in the hallways. The pt is compliant with medications and reports no side-effects. Symptoms are improving but needs more time to stabilize. After care discussed, support and psychoeducation given. Medication Change: Yes (increase zoloft) Medical Record Reviewed: Yes Mental Status Examination - Cognitive Function Orientation: Person, Place, Situation, Time Memory: Intact Attention: Poor Concentration: Poor Association: WNL Fund of Knowledge: Poor - Mood Mood: Depressed, Anxious - Affect Affect: Constricted, Depressed - Speech Speech: Soft - Formal Thought Process Formal Thought Process: No Impairment - Suicidal Ideation Suicidal Ideation: No - Homicidal Ideation Homicidal Ideation: No Goal/Treatment Plan - Goal/Treatment Plan Need for Continued Stay: Discharge may exacerbated symptoms, Severe functional impairment Progress Toward Problem(s) and Goals/Treatment Plan: Major depressive disorder recurrent severe without psychotic features CBT Psychoeducation Supportive therapy, individual therapy Increase Zoloft to 50 mg PO daily Trazodone 50 mg PO Q HS Neurontin 100 mg PO TID Transfer pt to 5E when gets cleared medically Alcohol use disorder moderate CBT Psychoeducation Supportive therapy, individual therapy Use [place] for abstinence - Smoking Cessation Smoking Cessation Initiated: No
[2017-04-23] MEDS: (Lantus) Insulin Glargine, Recombinant SC SCH (21:20)
[2017-04-24] MEDS: (Novolin R) Insulin Human Regular 100 units/ml vial SC SCH ×4 (08:29→21:09)
[2017-04-24] MEDS: Albuterol-Ipratrop 3 mg / 0.5 (3 ml) UD INH SCH (08:30)
[2017-04-24] MEDS: Fluticasone-Salmeterol 250-50mcg Diskus INH SCH ×2 (08:30→21:11)
[2017-04-24 09:51] VITALS: RESP 19
[2017-04-24] MEDS: Enoxaparin 40 mg Syringe SC SCH (10:02)
[2017-04-24] MEDS: Tiotropium 18 mcg Cap For Inhalation INH SCH ×2 (10:02→21:09)
--- NOTE | 2017-04-24 10:40 | PCM.PYCHPN ---
Psychiatric Progress Note - Psychiatric Progress Note Patient seen today, length of contact: 16 min Patient Chief Complaint: I am feeling much better Problems Identified/Issues Discussed: Patient is seen, evaluated, and case discussed with staff. Patient reports much impairment in his mood and appetite. He denies any feelings of hopelessness and helplessness. He denies any withdrawal symptoms. He denies any SI/HI/AVH. Patient is complaint with all medications, and reports no side effects. Symptoms are improving but needs more time to stabilize. Support and psychoeducation given. Medication Change: Yes (increase zoloft) Medical Record Reviewed: Yes Mental Status Examination - Cognitive Function Orientation: Person, Place, Situation, Time Memory: Intact Attention: WNL Concentration: WNL Association: WNL Fund of Knowledge: WNL - Mood Mood: Depressed, Anxious - Affect Affect: Constricted, Depressed - Speech Speech: Soft - Formal Thought Process Formal Thought Process: No Impairment - Suicidal Ideation Suicidal Ideation: No - Homicidal Ideation Homicidal Ideation: No Goal/Treatment Plan - Goal/Treatment Plan Need for Continued Stay: Discharge may exacerbated symptoms, Severe functional impairment Progress Toward Problem(s) and Goals/Treatment Plan: Major depressive disorder recurrent severe without psychotic features CBT Psychoeducation Supportive therapy, individual therapy Zoloft 200 mg PO daily d/c Trazodone 50 mg PO Q HS D/C Neurontin 100 mg PO TID Alcohol use disorder moderate CBT Psychoeducation Supportive therapy, individual therapy Use [place] for abstinence - Smoking Cessation Smoking Cessation Initiated: No
--- NOTE | 2017-04-24 12:12 | CARD ---
APPROVED REPORT EKG Measurement Heart [id number] <Conclusion> Atrial fibrillation Left bundle branch block Abnormal ECG
[2017-04-24] MEDS: (Lantus) Insulin Glargine, Recombinant SC SCH (21:12)
--- NOTE | 2017-04-25 10:29 | PCM.PYCHDC ---
Mental Status Examination - Mental Status Examination Orientation: Person, Place, Situation, Time Memory: Intact Mood: Neutral Affect: Constricted Speech: Soft Attention: WNL Concentration: WNL Association: WNL Fund of Knowledge: WNL Formal Thought Process: No Impairment Description of patient's judgement and insight: good, fair Psychotic Thoughts and Behaviors: denies any AVH Suicidal Ideation: No Current Homicidal Ideation?: No Discharge Summary - Discharge Note Reason for Hospitalization: Patient is a 71 year-old male, who lives alone, came to the hospital via ambulance after his neighbors saw him drinking alcohol in his car. We were consulted because the patient states he feels depressed and has suicidal ideations. Patient states that he drank a pint of liquor and was feeling depressed yesterday because it was 4th anniversary of his 's . 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 Patient admits to suicidal ideations yesterday while drinking but denies any suicidal ideation or plan today. He remained superficially cooperative but guarded about the details. He reports depressed mood but denies any feelings of haplessness and helplessness and worthlessness. Patient denies any previous suicide attempts. Patient denies any hallucinations , and any other symptoms. Patient denies any other substance abuse. Patient denies any withdrawal symptoms. Staff reports that pt remained calm and cooperative since yesterday and they didn't witness any depressed or crying behavior. Laboratory Data: Abnormal Lab Results 04/24/17 04/24/17 04/24/17 11:32 16:45 21:03 POC Glucose (mg/dL) 304 H 257 H 409 H* 04/25/17 07:30 POC Glucose (mg/dL) 271 H Consultations:: List each consultation separately and include: 1. Reason for request. 2. Findings. 3. Follow-up Summary of Hospital Course include:: 1. Description of specific treatment plan utilized for patients during their course of treatmen. 2. Summarize the time- course for resolution of acute symptoms and/or regressed behaviors. 3. Describe issues identified and worked on during hospitalization. 4. Describe medication utilized. 5. Describe medical problems identified and treated. 6. Reassessment of suicide risk Summary of Hospital Course: During the course of his stay, patient (pt) started progressively improving and he no longer remained irritable, depressed, suicidal and agitated. His mood and withdrawal symptoms were improved and he started attending groups and meetings and started socializing. Patient denied any feelings of hopelessness, helplessness, and worthlessness, denied any problem with the sleep or appetite, denied suicidal ideation or homicidal ideation. Pt denied any auditory or visual hallucinations. Some changes were made in his current medications and patient was discharged on following medications. He tolerated these medications very well and denied any side effects. - Final Diagnosis (DSM 5) Condition upon Discharge: GOOD DSM 5: Major depressive disorder recurrent severe without psychotic features Alcohol use disorder moderate Disposition: HOME/ ROUTINE Follow-up Treatment Plan: Education: Pt was educated and counseled about the risks and benefits of taking and not taking medications. Pt was educated and counseled about the risks of drinking and abusing drugs. Pt was educated and counseled to go to the ER or call 911 if pt develop suicidal ideation or homicidal ideation, worsening of symptoms or severe side effects of the meds. Prescriptions/Medication Reconciliation: hydrOXYzine HCl [Atarax] 25 mg PO BID #14 tab Sertraline [Zoloft] 100 mg PO DAILY #60 tab - Smoking Cessation Smoking Cessation Medication prescribed: No - Antipsychotic Medications Pt discharged on 2 or more routine antipsychotic medications: No
[2017-04-25] MEDS: Fluticasone-Salmeterol 250-50mcg Diskus INH SCH (10:58)
[2017-04-25 11:00] VITALS: BP 148/92; PULSE 90; TEMP 97.5
[2017-04-25] MEDS: (Novolin R) Insulin Human Regular 100 units/ml vial SC SCH (12:05)
== END 2017-04-25 11:30 | disposition home or self-care (01) | DRG 885 ==
LOC: SUPCPDRO 23:13 → C.ER 23:13 → C.9E 04-20 01:43 → C.6T 04-20 02:27 → OBSVTOIN 04-20 22:15 → C.5E 04-22 19:36
PROVIDERS: ADMIT Psychiatry & Neurology Psychiatry; ATTEND Psychiatry & Neurology Psychiatry
PROC: GZHZZZZ Group Psychotherapy (ICD-10-PCS; principal; 2017-04-20)
PROC: HZ52ZZZ Individual Psychotherapy for Substance Abuse Treatment, Cognitive-Behavioral (ICD-10-PCS; 2017-04-20)
PROC: HZ59ZZZ Individual Psychotherapy for Substance Abuse Treatment, Supportive (ICD-10-PCS; 2017-04-20)
PROC: HZ56ZZZ Individual Psychotherapy for Substance Abuse Treatment, Psychoeducation (ICD-10-PCS; 2017-04-20)
DX: F33.2 Major depressive disorder, recurrent severe without psychotic features (principal); E13.10 Other specified diabetes mellitus with ketoacidosis without coma; I48.91 Unspecified atrial fibrillation; R45.851 Suicidal ideations; E16.4 Increased secretion of gastrin; J43.9 Emphysema, unspecified; F10.230 Alcohol dependence with withdrawal, uncomplicated; Z79.4 Long term (current) use of insulin; Y90.8 Blood alcohol level of 240 mg/100 ml or more; J45.909 Unspecified asthma, uncomplicated; M81.0 Age-related osteoporosis without current pathological fracture; M19.90 Unspecified osteoarthritis, unspecified site; I10 Essential (primary) hypertension; E78.00 Pure hypercholesterolemia, unspecified; Z85.828 Personal history of other malignant neoplasm of skin; Z87.891 Personal history of nicotine dependence

== ENCOUNTER 2018-12-12 07:29 | Outpatient (CLI) | payer MEDICARE | END 2018-12-12 07:30 | disposition home or self-care (01) | LOC: C.USIC 07:30 | DX: R10.9 Unspecified abdominal pain (principal) ==